=== PATIENT | male | born 1965 | race Caucasian/White ===

== ENCOUNTER 2021-12-25 12:41 | Emergency (ER) | payer MEDICAID ==
[~2021-12-25] VITALS: Ht 165.1 cm; Wt 79.0 kg
[~2021-12-25 12:41] MED LIST: ACYC200C31 PO
[2021-12-25] MEDS ORDERED: PANTOPRAZOLE SODIUM 40 MG/VIAL IV STA (15:03)
[2021-12-25 16:10] LABS: BASOPHILS % 0.5 % (0.0-2.0); EOSINOPHILS % 0.3 % (0.0-5.0); HEMATOCRIT. 35.2 % (42.0-52.0); HEMOGLOBIN. 11.8 g/dL (14.0-18.0); LYMPHOCYTES % 26.6 % (20.0-50.0); MEAN CORPUSCULAR VOLUME 74.5 fL (80.0-94.0); MEAN PLATELET VOLUME 7.6 fl (7.4-10.4); MONOCYTES % 7.5 % (2.0-8.0); NEUTROPHILS % 65.1 % (40.0-76.0); PLATELET 318 x1000/uL (130-400); RED BLOOD CELL COUNT 4.73 mill/uL (4.7-6.1); RED CELL DISTRIBUTION WIDTH 14.4 % (11.6-14.6)
[2021-12-25 16:15] LABS: CHLORIDE 106 mEq/L (98-107)
[2021-12-25 16:19] LABS: PROTHROMBIN TIME 10.6 sec (9.6-11.0)
[2021-12-25 16:22] LABS: ETHANOL BLOOD < 10 mg/dL
[2021-12-25 18:35] VITALS: BP 134/84
[2021-12-25] MEDS ORDERED: DOCU100T MT (18:52)
[2021-12-25] MEDS ORDERED: OMEP20CA14 MT (18:52)
[2021-12-25] MEDS ORDERED: HYDR25SU37 RC (18:52)
== END 2021-12-25 19:12 | disposition home or self-care (01) ==
LOC: ER 12:41
DX: K62.89 Other specified diseases of anus and rectum (principal); K62.5 Hemorrhage of anus and rectum; R10.9 Unspecified abdominal pain; E78.00 Pure hypercholesterolemia, unspecified; I10 Essential (primary) hypertension; R79.9 Abnormal finding of blood chemistry, unspecified
CPT/HCPCS: 36415; 80053; 80320; 83690; 85025; 85610; 86850; 86900; 86901; 96374; 99283; C9113; G0480